=== PATIENT | female | born 1975 | race Two or more races ===

== ENCOUNTER 2025-07-15 08:44 | Emergency (ER) | payer OTHER ==
[~2025-07-15] VITALS: Ht 165.1 cm; Wt 72.6 kg
[2025-07-15] MEDS ORDERED: NORVASC10 MG (09:27)
[2025-07-15] MEDS ORDERED: HYDROCHLOROTHIA25 MG (09:28)
[2025-07-15] MEDS ORDERED: 0.9 % SODIUM CHLORIDE 1,000 ML IV SCH (10:15)
[2025-07-15] MEDS ORDERED: ONDANSETRON HCL 2 MG/ML VIAL IV ONE (10:15)
[2025-07-15] MEDS ORDERED: FAMOTIDINE/PF 20 MG/2 ML VIAL IV ONE (10:15)
[2025-07-15] MEDS ORDERED: CEFTRIAXONE SODIUM 1,000 MG VIAL IV ONE (10:15)
[2025-07-15] MEDS ORDERED: ONDANSETRON HCL 2 MG/ML VIAL ONE (10:24)
[2025-07-15] MEDS ORDERED: CEFTRIAXONE SODIUM 1,000 MG VIAL ONE (10:25)
[2025-07-15] MEDS ORDERED: FAMOTIDINE/PF 20 MG/2 ML VIAL ONE (10:25)
[2025-07-15 10:54] LABS: BASO % 0.6 % (0.1-1.2); EOS # 0.19 (0.04-0.54); EOS % 6.0 % (0.7-7.0); LYMPH # 1.30 (1.18-3.74); LYMPH % 41.3 % (19.3-53.1); MEAN PLATELET VOLUME 10.10 fl (9.4-12.4); MONO # 0.39 (0.24-0.82); NEUT # 1.25 (1.56-6.13); NEUT % 39.7 % (34.0-71.1); RED CELL DISTRIBUTION WIDTH 12.4 % (11.6-14.4)
[2025-07-15 10:56] LABS: ERYTHROCYTE SEDIMENTATION RATE 5 mm/hr (0-30)
[2025-07-15 10:57] LABS: MONO % 12.4 % (4.7-12.5)
[2025-07-15 10:57] LABS: URINE APPEARANCE Clear; URINE BILIRRUBIN Negative (NEGATIVE); URINE BLOOD Negative; URINE COLOR Yellow; URINE GLUCOSE Negative (NEGATIVE); URINE KETONE Negative (NEGATIVE); URINE LEUKOCYTE Negative; URINE NITRATE Negative; URINE PROTEIN Negative (NEGATIVE); URINE UROBILINOGEN 0.2 E.U./dl
[2025-07-15 10:58] LABS: URINE BACTERIA 173.8 uL (0.0-1933); URINE EPITHELIAL CELLS 6.5 uL (0.0-38.8)
[2025-07-15 11:00] LABS: URINE CAST 0.00 uL (0.0-1.40); URINE RBC 1.4 uL (0.0-20.8); URINE WBC 0.4 uL (0.0-23.2)
[2025-07-15 11:20] LABS: COVID-19 AG NEGATIVE (NEGATIVE)
[2025-07-15 11:25] LABS: ALT/SGPT 42 U/L (12-78); AST/SGOT 40 U/L (15-37); BILIRUBIN TOTAL 0.33 mg/dL (0.3-1.2); BUN CREA RATIO 10 (7.0-25.0); CREATININE SERUM 0.61 mg/dL (0.55-1.02); GFR 103.40; GLOBULINA 3.8 G/DL (2.4-3.5); GLUCOSE FASTING 89 mg/dL (65-100); OSMOLALITY SERUM 284 MOSM/KG (275-295)
[2025-07-15] MEDS ORDERED: MUCINEX D ER 11 EACH PO (15:20)
[2025-07-15] MEDS ORDERED: PEPCID AC20 MG PO (15:20)
== END 2025-07-15 16:41 | disposition home or self-care (01) ==
LOC: ER 08:44
PROVIDERS: Student in an Organized Health Care Education/Training Program
DX: B34.9 Viral infection, unspecified (principal); R11.10 Vomiting, unspecified; I10 Essential (primary) hypertension; R10.9 Unspecified abdominal pain; R50.9 Fever, unspecified; Z20.822 Contact with and (suspected) exposure to COVID-19
CPT/HCPCS: 36415; 74177; Q9965